=== PATIENT | male | born 1960 ===

== ENCOUNTER 2022-04-30 18:12 | Emergency (ER) | payer BC ==
[~2022-04-30] VITALS: Ht 170.2 cm; Wt 86.4 kg
[2022-04-30 21:35] VITALS: BP 156/90
== END 2022-04-30 21:38 | disposition home or self-care (01) ==
LOC: EMS 18:15
DX: F41.9 Anxiety disorder, unspecified (principal); F12.90 Cannabis use, unspecified, uncomplicated; E11.9 Type 2 diabetes mellitus without complications; I10 Essential (primary) hypertension
CPT/HCPCS: 82948; 99284; Z7502